=== PATIENT | female | born 1980 | race Two or more races ===

== ENCOUNTER 2020-04-17 01:15 | Inpatient (IN) | payer OTHER ==
[2020-04-17] MEDS ORDERED: MORPHINE SULFATE INJ 4 MG/ML DISP.SYRIN ONE (01:30)
[2020-04-17] MEDS ORDERED: ONDANSETRON HCL/PF 4 MG/2 ML VIAL IVP ONE (01:30)
[2020-04-17] MEDS ORDERED: MORPHINE SULFATE INJ 2 MG/ML DISP.SYRIN IV ONE (01:30)
[2020-04-17] MEDS ORDERED: IV NS 0.9% 1,000 ML BAG IV ONE (01:30)
[2020-04-17] MEDS ORDERED: ONDANSETRON HCL/PF 4 MG/2 ML VIAL ONE (01:30)
[2020-04-17] MEDS ORDERED: INSULIN REGULAR, HUMAN 100 UNIT/ML 10 ML VIAL ONE (03:15)
[2020-04-17] MEDS ORDERED: INSULIN REGULAR, HUMAN 100 UNIT in IV NS 0.9% 99 ML IV PRN ×4 (03:30→06:00)
[2020-04-17] MEDS ORDERED: INSU100V11 SQ (05:25)
[2020-04-17] MEDS ORDERED: IV NS 0.9% 1,000 ML IV PRN ×2 (06:00)
[2020-04-17] MEDS ORDERED: ONDANSETRON HCL/PF 4 MG/2 ML VIAL IVP PRN (06:00)
[2020-04-17] MEDS ORDERED: IV D5/0.45 NACL 1,000 ML IV SCH (11:30)
[2020-04-17] MEDS ORDERED: IV NS 0.9% 1,000 ML IV SCH (11:30)
[2020-04-17] MEDS: IV NS 0.9% 1,000 ML IV PRN ×2 (16:56→20:00)
[2020-04-17] MEDS: INSULIN REGULAR, HUMAN 100 UNIT in IV NS 0.9% 99 ML IV PRN ×2 (19:28)
[2020-04-17] MEDS: IV PREMIX D5 1/2NS + KCL 1,000 ML IV PRN (19:29)
[2020-04-18] MEDS: IV NS 0.9% 1,000 ML IV PRN ×2 (01:19→06:15)
[2020-04-18] MEDS: IV PREMIX D5 1/2NS + KCL 1,000 ML IV PRN ×2 (01:19→07:48)
[2020-04-18] MEDS: BLOOD SUGAR DIAGNOSTIC 1 EACH STRIP IN SCH ×21 (03:37→23:08)
[2020-04-18] MEDS: PANTOPRAZOLE 40 MG VIAL IV SCH (08:16)
[2020-04-18] MEDS: Magnesium 1GM/D5W 100ML PREMIX 100 ML IV SCH ×2 (09:23→10:24)
[2020-04-18] MEDS: POTASSIUM PHOSPHATE MM 7.5 MMOL in IV NS 0.9% 100 ML IV SCH ×2 (10:24→13:03)
[2020-04-18] MEDS: INSULIN REGULAR, HUMAN 100 UNIT in IV NS 0.9% 99 ML IV PRN ×2 (10:36)
[2020-04-18] MEDS: IV D5/0.45 NACL 1,000 ML IV SCH (13:43)
[2020-04-18] MEDS: MORPHINE SULFATE INJ 2 MG/ML DISP.SYRIN IV PRN (22:22)
[2020-04-19] MEDS: BLOOD SUGAR DIAGNOSTIC 1 EACH STRIP IN SCH ×24 (00:16→23:07)
[2020-04-19] MEDS: IV D5/0.45 NACL 1,000 ML IV SCH (00:16)
[2020-04-19] MEDS: INSULIN REGULAR, HUMAN 100 UNIT in IV NS 0.9% 99 ML IV PRN ×4 (02:18→11:59)
[2020-04-19] MEDS: PANTOPRAZOLE 40 MG VIAL IV SCH (08:49)
[2020-04-19] MEDS: POTASSIUM PHOSPHATE MM 7.5 MMOL in IV NS 0.9% 100 ML IV SCH ×2 (10:06→13:18)
[2020-04-19] MEDS: IV D5/0.45 NACL 1,000 ML IV PRN ×2 (10:24→21:25)
[2020-04-19] MEDS ORDERED: GUAIFENESIN/D-METHORPHAN HB 5 ML UDC PO PRN (10:30)
[2020-04-19] MEDS: ACETAMINOPHEN 325 MG TABLET PO PRN ×2 (14:07→22:26)
[2020-04-20] MEDS: INSULIN REGULAR, HUMAN 100 UNIT in IV NS 0.9% 99 ML IV PRN ×6 (00:09→21:09)
[2020-04-20] MEDS: BLOOD SUGAR DIAGNOSTIC 1 EACH STRIP IN SCH ×23 (00:09→23:00)
[2020-04-20] MEDS ORDERED: POTASSIUM CHLORIDE 10 MEQ/50 ML PREMIXED IVPB FOR PERIPHERAL LINE IV ONE (06:30)
[2020-04-20] MEDS ORDERED: POTASSIUM CL. PREMIX PERIPHER. 50 ML ONE (06:44)
[2020-04-20] MEDS: PANTOPRAZOLE 40 MG VIAL IV SCH (08:04)
[2020-04-20] MEDS: MORPHINE SULFATE INJ 2 MG/ML DISP.SYRIN IV PRN (08:19)
[2020-04-20] MEDS: Potassium Chloride 20 MEQ in IV D5/ 0.9% NACL 1,000 ML IV PRN ×2 (09:17→23:03)
[2020-04-20] MEDS ORDERED: NEUTRA PHOS 1 POWD.PACKET PO ONE (13:00)
[2020-04-21] MEDS: BLOOD SUGAR DIAGNOSTIC 1 EACH STRIP IN SCH ×9 (00:01→08:13)
[2020-04-21] MEDS: HYDROCODONE/APAP 5/325MG TABLET PO PRN (01:32)
[2020-04-21] MEDS ORDERED: *INSULIN REGULAR(HUMULIN R)HUM 100 UNIT/ML VIAL SQ PRN (08:30)
[2020-04-21] MEDS ORDERED: DEXTROSE 50%-WATER 50 ML DISP.SYRIN IV PRN (08:30)
[2020-04-21] MEDS: PANTOPRAZOLE 40 MG VIAL IV SCH (08:46)
[2020-04-21] MEDS ORDERED: CLONIDINE HCL 0.1 MG TABLET PO PRN (09:30)
[2020-04-21] MEDS: BLOOD SUGAR DIAGNOSTIC 1 EACH STRIP VI SCH ×3 (11:46→22:00)
[2020-04-21] MEDS: INSULIN REGULAR, HUMAN 100 UNIT/ML 3 ML VIAL SQ PRN ×3 (11:48→22:12)
[2020-04-21] MEDS ORDERED: INSULIN GLARGINE, 100 UNIT/ML CARTRIDGE SQ SCH ×2 (22:00)
[2020-04-22] MEDS: HYDROCODONE/APAP 5/325MG TABLET PO PRN (01:45)
[2020-04-22] MEDS ORDERED: PANTOPRAZOLE 40 MG TABLET.DR PO SCH (07:30)
[2020-04-22] MEDS: BLOOD SUGAR DIAGNOSTIC 1 EACH STRIP VI SCH ×2 (07:37→12:24)
[2020-04-22] MEDS: INSULIN REGULAR, HUMAN 100 UNIT/ML 3 ML VIAL SQ PRN ×2 (07:38→12:23)
== END 2020-04-22 14:17 | disposition home or self-care (01) | DRG 640 ==
DX: E86.0 Dehydration (principal); E11.10 Type 2 diabetes mellitus with ketoacidosis without coma; E87.2 Acidosis; E86.1 Hypovolemia; D64.9 Anemia, unspecified; Z79.4 Long term (current) use of insulin; E87.6 Hypokalemia; E83.39 Other disorders of phosphorus metabolism; E83.42 Hypomagnesemia

== ENCOUNTER 2021-02-26 09:54 | Inpatient (IN) | payer OTHER ==
[2021-02-26] VITALS (14 sets, daily range): BP systolic 90–117; BP diastolic 48–69
[~2021-02-26] VITALS: Ht 149.9 cm; Wt 54.9 kg
[~2021-02-26 09:54] MED LIST: INSU100V11 SQ
--- NOTE | 2021-02-26 09:59 | NUR ---
PT BIBRA FROM HOME TO ER BED 07. PER EMS REPORT, PT WAS FOUND BY SISTER W/ ALTERED MENTAL STATUS AT THE BEDROOM. BG READING HIGH DOLLY PUSHER. HX OF DIABETES. PT STILL ALTERED. GOWNED AND PLACED ON MONITOR. STABLE VITAL AT THIS TIME. AWAITING MD VEGA.
[2021-02-26] MEDS ORDERED: IV NS 0.9% 1,000 ML BAG IV ONE ×3 (10:00→10:30)
[2021-02-26] MEDS ORDERED: INSULIN REGULAR, HUMAN 100 UNIT/ML 10 ML VIAL IV ONE (10:00)
--- NOTE | 2021-02-26 10:01 | NUR ---
DR FULLER AT BEDSIDE FOR EVAL.
--- NOTE | 2021-02-26 10:10 | NUR ---
IV LINE STARTED BLOOD DRAWN AND SENT TO LAB.
[2021-02-26] MEDS ORDERED: INSULIN REGULAR, HUMAN 100 UNIT/ML 10 ML VIAL ONE (10:15)
[2021-02-26 10:18] LABS: BASOPHILS # (AUTO) 0.1 K/uL (0.0-0.2); BASOPHILS % (AUTO) 0.9 % (0.0-2.0); HEMATOCRIT 38 % (33-45); HEMOGLOBIN 9.7 g/dL (11.5-14.8); LYMPHOCYTES # (AUTO) 1.2 K/uL (0.8-4.8); LYMPHOCYTES % (AUTO) 7.5 % (20.0-44.0); MEAN CORPUSCULAR HGB CONC 26 g/dl (31.0-36.0); MEAN CORPUSCULAR VOLUME 100 fL (82-100); MONOCYTES # (AUTO) 2.6 K/uL (0.1-1.30); MONOCYTES % (AUTO) 16.7 % (2.0-12.0); NEUTROPHILS # (AUTO) 11.8 K/uL (1.8-8.9); NEUTROPHILS % (AUTO) 74.9 % (43.0-81.0); PLATELET COUNT (AUTO) 559 K/uL (150-450); RED BLOOD CELL COUNT(AUTO) 3.78 MIL/uL (4.0-5.2); WHITE BLOOD COUNT (AUTO) 15.7 K/uL (4.3-11.0)
[2021-02-26] MEDS ORDERED: INSULIN REGULAR, HUMAN 100 UNIT in IV NS 0.9% 99 ML IV PRN ×3 (10:30→16:30)
[2021-02-26 10:41] LABS: SERUM AMMONIA 56 umol/L (11-32)
[2021-02-26 10:55] LABS: ABG BASE EXCESS -29.8 mmol/L; ABG OXYGEN SATURATION 97.3 % (92.0-98.5); ABG PCO2 13.6 mmHg (35.0-45.0); ABG PH 6.852 (7.350-7.450); ABG PO2 138.7 mmHg (75.0-100.0); AaDO2 44.9 mmHg; COHb 0.3 % (0.5-1.5); MetHb 0.4 % (0.0-1.5); O2Hb 96.6 % (94.0-97.0); SITE, ABG Right Radial; VENT MODE, BG N/C
--- NOTE | 2021-02-26 10:56 | NUR ---
INSULIN STARTED AT 5MCG. WILL TITRATE TO EFFECT. STABLE VITALS. WILL MONITOR CLOSELY.
[2021-02-26 11:02] LABS: BILIRUBIN,URINE SMALL (NEGATIVE); COLOR,URINE YELLOW (YELLOW); LEUKOCYTE ESTERASE ,URINE Negative (NEGATIVE); NITRITE, URINE Negative (NEGATIVE); PROTEIN,URINE Trace mg/dl (NEGATIVE); UGLUCOSE 500 MG/DL mg/dL (NEGATIVE); UROBILINOGEN,URINE 0.2 EU/dL (0.2)
[2021-02-26 11:04] LABS: BACTERIA,URINE Rare /HPF (None Seen); SQUAMOUS EPITHELIAL CELL,UR Few /HPF (None Seen); WBC,URINE NONE SEEN /HPF (0-3)
--- NOTE | 2021-02-26 11:17 | NUR ---
PT TAKEN TO RADIOLOGY FOR HEAD CT SCAN VIA RIZWANA
[2021-02-26 11:34] LABS: CALCIUM, SERUM 9.8 mg/dL (8.5-10.1); CHLORIDE 84 mmol/L (98-107); CREATININE 1.9 mg/dL (0.6-1.3); SODIUM SERUM 121 mmol/L (136-145); UREA NITROGEN, BLOOD 37 mg/dL (7-18)
--- NOTE | 2021-02-26 11:38 | NUR ---
RETURNED FROM CT SCAN. REPEAT GLUCOSE CHECK, >600. INSULIN DRIP INCREASED TO 8MCG.
--- NOTE | 2021-02-26 11:44 | NUR ---
PAGED EPIC ROADING ENGINEER FOR CONSULT. ER MD AND ROADING ENGINEER ARE ON THE PHONE
[2021-02-26 11:46] LABS: ALANINE AMINOTRANSFERASE 100 U/L (12-78); ALBUMIN 2.8 g/dL (3.4-5.0); ALCOHOL, BLOOD < 3 mg/dL (0-0); ALKALINE PHOSPHATASE 230 U/L (46-116); ASPARTATE AMINOTRANSFERASE 61 U/L (15-37); BILIRUBIN,DIRECT 0.1 mg/dL (0.0-0.2); BILIRUBIN,TOTAL 0.8 mg/dL (0.2-1.0); TOTAL PROTEIN, SERUM 6.9 g/dL (6.4-8.2)
[2021-02-26 11:48] LABS: POTASSIUM 7.9 mmol/L (3.5-5.1)
[2021-02-26 11:49] LABS: CARBON DIOXIDE 3 mmol/L (21-32)
[2021-02-26 11:50] LABS: GLUCOSE 1066 mg/dL (74-106)
[2021-02-26] MEDS ORDERED: SODIUM BICARBONATE SYR 50 MEQ/50 ML DISP.SYRIN ONE (11:50)
--- NOTE | 2021-02-26 11:54 | NUR ---
CALLED NURSING SUP FOR BED
[2021-02-26] MEDS ORDERED: SODIUM BICARBONATE SYR 50 MEQ/50 ML DISP.SYRIN IV ONE ×2 (12:00)
[2021-02-26 12:18] LABS: CALCIUM, SERUM 8.6 mg/dL (8.5-10.1); CREATININE 1.7 mg/dL (0.6-1.3); POTASSIUM 5.7 mmol/L (3.5-5.1)
--- NOTE | 2021-02-26 12:22 | NUR ---
LAB CALLED WITH CRITICAL RESULT
--- NOTE | 2021-02-26 12:49 | NUR ---
REPEAT ACCUCHECK DONE, STILL READING HIGH. PT IS MORE ALERT. VERBALLY RESPONSIVE. STABLE VITALS. WILL MONITOR CLOSELY.
[2021-02-26] MEDS ORDERED: INSU100V11 SQ (13:08)
[2021-02-26] MEDS ORDERED: IV NS 0.9% 1,000 ML IV PRN (13:30)
[2021-02-26 13:36] LABS: BAND % (MANUAL) 2 % (0.0-5.0); LYMPHOCYTES % (MANUAL) 10 % (16-48); MONOCYTES % (MANUAL) 13 % (0-11.0); NEUTROPHILS % (MANUAL) 75 (42-76)
[2021-02-26 14:16] LABS: THYROID STIMULATING HORMONE 4.967 uIU/mL (0.358-3.74)
[2021-02-26 14:19] LABS: CALCIUM, SERUM 8.6 mg/dL (8.5-10.1); CREATININE 1.7 mg/dL (0.6-1.3); POTASSIUM 4.6 mmol/L (3.5-5.1)
[2021-02-26] MEDS ORDERED: PANTOPRAZOLE 40 MG VIAL ONE (14:39)
[2021-02-26] MEDS: PANTOPRAZOLE 40 MG VIAL IV SCH (14:41)
--- NOTE | 2021-02-26 15:55 | NUR ---
BED 258 ICU
--- NOTE | 2021-02-26 16:02 | NUR ---
REPORT GIVEN TO CLAIRE AT ICU. PT AWAITING TRANSFER TO FLOOR.
--- NOTE | 2021-02-26 16:15 | NUR ---
GOT AN ORDER TO RYAN MURRIETA NP TO USE BG X1.5 /100 A FORMULA FOR INSULIN DRIP NOTED AND CARRIED OUT
--- NOTE | 2021-02-26 16:20 | NUR ---
RECEIVED PT FROM ER DROWSY BUT OPEN EYES TO SPEECH AND ANSWER SOME QUESTION AA/O X3 ON ROOM AIR NO SIGN OF RESPIRATORY DISTRESS, SAFELY TRANSFER JENNIFERRHAWA TO BED, HOOKED TO MONITOR V/S CHECKED AND RECORDED, INITIAL ASSESSMENT DONE, HEAD TO TOE ASSESSMENT DONE,PER PT SHE SAID SHE RECEIVED COVID VAX BUT CANNOT REMEMBER WHAT DATE AND WHAT BRAND, WILL F/U WHEN SHE IS MORE AWAKE, TELE MONITOR READS SINUS TACHY 100'S, T HAVE LAC #18 WITH ONGOING INSULIN DRIP @ 5 UNITS/HR WILL TITRATE PER PROTOCOL, AND NS @ 150ML/HR INFUSING WELL, SHE ALSO HAVE RA #18 PATENT AND FLUSHED DRESSING CLEAN DRY AND INTACT, HAVE BECK CATHETER DRAINING YELLOW URINE VIA GRAVITY, PUT BED ON LOWEST POSITION AND LOCKED SIDE RAILS UP X2 CALL LIGHT WITHIN REACH WILL CONT TO MONITOR
[2021-02-26] MEDS: IV D5/0.45 NACL 1,000 ML IV PRN (18:10)
[2021-02-26 18:35] LABS: CALCIUM, SERUM 8.4 mg/dL (8.5-10.1); CREATININE 1.7 mg/dL (0.6-1.3); POTASSIUM 4.3 mmol/L (3.5-5.1)
[2021-02-26] MEDS: BLOOD SUGAR DIAGNOSTIC 1 EACH STRIP IN SCH ×6 (19:00→23:02)
[2021-02-26 23:38] LABS: CALCIUM, SERUM 8.1 mg/dL (8.5-10.1); CREATININE 1.6 mg/dL (0.6-1.3); POTASSIUM 3.9 mmol/L (3.5-5.1)
[2021-02-27] VITALS (14 sets, daily range): BP systolic 90–118; BP diastolic 48–76
[2021-02-27] MEDS: BLOOD SUGAR DIAGNOSTIC 1 EACH STRIP IN SCH ×9 (01:00→21:16)
[2021-02-27 02:41] LABS: BASOPHILS % (AUTO) 0.3 % (0.0-2.0); EOSINOPHILS % (AUTO) 0.3 % (0.0-6.0); HEMATOCRIT 26 % (33-45); HEMOGLOBIN 8.4 g/dL (11.5-14.8); LYMPHOCYTES # (AUTO) 0.8 K/uL (0.8-4.8); LYMPHOCYTES % (AUTO) 11.4 % (20.0-44.0); MEAN CORPUSCULAR HGB CONC 33 g/dl (31.0-36.0); MEAN CORPUSCULAR VOLUME 80 fL (82-100); MONOCYTES # (AUTO) 1.1 K/uL (0.1-1.30); MONOCYTES % (AUTO) 14.8 % (2.0-12.0); NEUTROPHILS # (AUTO) 5.3 K/uL (1.8-8.9); NEUTROPHILS % (AUTO) 73.2 % (43.0-81.0); PLATELET COUNT (AUTO) 357 K/uL (150-450); RED BLOOD CELL COUNT(AUTO) 3.24 MIL/uL (4.0-5.2); WHITE BLOOD COUNT (AUTO) 7.2 K/uL (4.3-11.0)
[2021-02-27 03:16] LABS: ALBUMIN 2.1 g/dL (3.4-5.0); BILIRUBIN,TOTAL 0.3 mg/dL (0.2-1.0); CALCIUM, SERUM 7.9 mg/dL (8.5-10.1); CREATININE 1.4 mg/dL (0.6-1.3); MAGNESIUM 1.8 mg/dL (1.8-2.4); PHOSPHORUS 1.9 mg/dL (2.5-4.9); POTASSIUM 3.8 mmol/L (3.5-5.1); TOTAL PROTEIN, SERUM 5.4 g/dL (6.4-8.2)
[2021-02-27 03:28] LABS: THYROID STIMULATING HORMONE 5.204 uIU/mL (0.358-3.74)
[2021-02-27] MEDS: IV D5/0.45 NACL 1,000 ML IV PRN (04:01)
--- NOTE | 2021-02-27 04:06 | NUR ---
REPORTED TO NUTRITION PROGRAM INSTRUCTOR KORI STEINBERG IT SERVICE MANAGER THAT PT ANION GAP IS 13 AND LATEST BLOOD SUGAR IS 202 FROM 97 WITH ORDER TO STOP INSULIN DRIP AND GIVE 20 UNITS LANTUS SQ X1 NOW THE AGGRESSIVE SLIDING SCALE Q4H ALSO PUT PT ON DIABETIC DIET TOLERATED NOTED AND CARRIED OUT
[2021-02-27] MEDS ORDERED: DEXTROSE 50%-WATER 50 ML DISP.SYRIN IV PRN (04:30)
[2021-02-27] MEDS ORDERED: INSULIN GLARGINE, 100 UNIT/ML CARTRIDGE SQ ONE ×2 (04:30→05:10)
[2021-02-27] MEDS: INSULIN REGULAR, HUMAN 100 UNIT/ML 3 ML VIAL SQ PRN ×2 (05:59→21:26)
--- NOTE | 2021-02-27 08:00 | NUR ---
rn notes received patient in the bed sleeping. no acute respiratory distress. on room air so2-95% NC. patient still drowse, but able to verbalized self, a/ox3. patient refused pain. infusing d51/2 ns @100 ml/hr on left AC area intact. Franco draining via gravity light yellow output. patient able to turn and reposition self in the bed. call light within to reach. will monitoring.
[2021-02-27] MEDS: PANTOPRAZOLE 40 MG VIAL IV SCH (08:29)
--- NOTE | 2021-02-27 08:41 | NUR ---
rn notes bs-123 mg/dl, no coverage given, patient refusing breakfast. patient will be downgrade to the med/surge unite room 311.
[2021-02-27] MEDS ORDERED: K PHOS NEUTRAL 250 MG TABLET PO ONE (10:00)
--- NOTE | 2021-02-27 10:00 | NUR ---
RN NOTES TRANSFERRED PATIENT TO THE MED/SURGE UNIT STABLE, NO ACUTE RESPIRATORY DISTRESS, VSS. REPORT GIVEN BEDSIDE RN . RN VERBALIZED UNDERSTANDING FOLLOW PLAN OF CARE.
[2021-02-27 15:54] LABS: CALCIUM, SERUM 7.7 mg/dL (8.5-10.1); CREATININE 1.1 mg/dL (0.6-1.3); POTASSIUM 3.5 mmol/L (3.5-5.1)
--- NOTE | 2021-02-27 19:40 | NUR ---
MS/RN OPENING NOTE RECEIVED PATIENT SLEEPING IN BED. ALERT AND ORIENTED X 3. ABLE TO MAKE NEEDS KNOWN. DENIES PAIN AT THIS TIME. CONTINUES ON ROOM AIR WITH NO S/SX OF RESPIRATORY DISTRESS NOTED. IV ACCESS TO RIGHT AC #20G AND LEFT AC #20G BOTH INTACT AND PATENT. CONTINUES ON IVF D5 1/2 NS @ 100MLS/HR. CONTINUES ON Q4HR BLOOD GLUCOSE CHECKS. BECK CATHETER PATENT DRAINING TO GRAVITY. CALL LIGHT WITHIN REACH. ASPIRATION, FALL AND SAFETY PRECAUTIONS MAINTAINED. WILL CONTINUE TO MONITOR.
[2021-02-28] MEDS: IV D5/0.45 NACL 1,000 ML IV PRN (00:59)
[2021-02-28] MEDS: BLOOD SUGAR DIAGNOSTIC 1 EACH STRIP IN SCH ×3 (00:59→09:10)
[2021-02-28] MEDS: INSULIN REGULAR, HUMAN 100 UNIT/ML 3 ML VIAL SQ PRN ×2 (05:27→09:14)
[2021-02-28 06:29] LABS: BILIRUBIN,TOTAL 0.4 mg/dL (0.2-1.0); CALCIUM, SERUM 7.5 mg/dL (8.5-10.1); CREATININE 0.8 mg/dL (0.6-1.3); MAGNESIUM 2.1 mg/dL (1.8-2.4); PHOSPHORUS 2.3 mg/dL (2.5-4.9); POTASSIUM 3.2 mmol/L (3.5-5.1); TOTAL PROTEIN, SERUM 5.3 g/dL (6.4-8.2)
[2021-02-28 06:49] LABS: BASOPHILS % (AUTO) 0.4 % (0.0-2.0); EOSINOPHILS % (AUTO) 1.5 % (0.0-6.0); HEMATOCRIT 26 % (33-45); HEMOGLOBIN 8.4 g/dL (11.5-14.8); LYMPHOCYTES # (AUTO) 1.3 K/uL (0.8-4.8); LYMPHOCYTES % (AUTO) 24.2 % (20.0-44.0); MEAN CORPUSCULAR HGB CONC 32 g/dl (31.0-36.0); MEAN CORPUSCULAR VOLUME 80 fL (82-100); MONOCYTES # (AUTO) 0.6 K/uL (0.1-1.30); MONOCYTES % (AUTO) 10.5 % (2.0-12.0); NEUTROPHILS # (AUTO) 3.5 K/uL (1.8-8.9); NEUTROPHILS % (AUTO) 63.4 % (43.0-81.0); PLATELET COUNT (AUTO) 293 K/uL (150-450); RED BLOOD CELL COUNT(AUTO) 3.24 MIL/uL (4.0-5.2); WHITE BLOOD COUNT (AUTO) 5.6 K/uL (4.3-11.0)
--- NOTE | 2021-02-28 07:52 | NUR ---
MS RN OPENING NOTE PATIENT IS IN ROOM RESTING, PATIENT IS IN NO ACUTE DISTRESS. PATIENT IS ON ROOM AIR SATURATING WELL. PATIENT HAS BECK CATHETER IN PLACE. SAFETY PRECAUTIONS ARE ON, BED IS LOCKED IN THE LOWEST POSITION WITH SIDE RAILS UP, CALL LIGHT WITHIN REACH, WILL CONTINUE TO MONITOR CLOSELY.
[2021-02-28 08:00] VITALS: BP 142/78
[2021-02-28] MEDS: PANTOPRAZOLE 40 MG VIAL IV SCH (09:10)
[2021-02-28 10:00] VITALS: BP 142/78
[2021-02-28] MEDS ORDERED: K PHOS NEUTRAL 250 MG TABLET PO ONE (11:00)
--- NOTE | 2021-02-28 13:15 | NUR ---
MS EVIDENCE SPECIALIST NOTE PATIENT IS IN NO ACUTE DISTRESS, PATIENT IS MEDICALLY STABLE TO BE DISCHARGED. PATIENTS NEEDS WERE ATTENDED DURING THE STAY. DISCHARGE INSTRUCTIONS DISCUSSED, PATIENT VERBALIZED UNDERSTANDING. BELONGINGS LIST WENT OVER AND SIGNED. PATIENTS SKIN IS INTACT. BECK CATHETER REMOVED, ID BAND AND IV LINE REMOVED. PATIENT IS BEING PICKED UP BY HER SISTER. MS IS AWARE OF DISCHARGE.
== END 2021-02-28 11:45 | disposition home or self-care (01) | DRG 637 ==
LOC: ER 09:58 → TRANSITION 12:04 → ICU 16:13 → MED 02-27 10:07
PROVIDERS: ADMIT Hospitalist
DX: E10.10 Type 1 diabetes mellitus with ketoacidosis without coma (principal); G93.41 Metabolic encephalopathy; N17.0 Acute kidney failure with tubular necrosis; E44.0 Moderate protein-calorie malnutrition; E72.20 Disorder of urea cycle metabolism, unspecified; I10 Essential (primary) hypertension; Z20.822 Contact with and (suspected) exposure to COVID-19; D64.9 Anemia, unspecified; D72.829 Elevated white blood cell count, unspecified; D47.3 Essential (hemorrhagic) thrombocythemia; E87.5 Hyperkalemia; E83.39 Other disorders of phosphorus metabolism; E86.0 Dehydration; R74.01 Elevation of levels of liver transaminase levels
CPT/HCPCS: 36415; 36600; 70450-TC; 71045-TC; 80048-TC; 80053-TC; 80076-TC; 81001; 82140-TC; 82803-TC; 82962-TC; 83735-TC; 84100-TC; 84443-TC; 84484-TC; 84703-TC; 85025-TC; 85730-TC; 87081-TC; C9113; C9803; G0378; G0480; J1815; J3490; J7030